=== PATIENT | female | born 1985 | race African-American/Black ===

== ENCOUNTER 2020-10-08 08:30 | Day surgery (SDC) | payer OTHER ==
[2020-10-08] MEDS ORDERED: hydrALAZINE 20 MG/ML VIAL SLOW IVP PRN (09:45)
[2020-10-08 11:06] LABS: Amnisure Test No Membranes Rupture (No Rupture)
== END 2020-10-08 12:45 | disposition home or self-care (01) ==
LOC: CSHLD/OP 08:30
PROVIDERS: ATTEND Obstetrics & Gynecology
DX: O99.891 Other specified diseases and conditions complicating pregnancy (principal); N89.8 Other specified noninflammatory disorders of vagina; O10.913 Unspecified pre-existing hypertension complicating pregnancy, third trimester; O30.003 Twin pregnancy, unspecified number of placenta and unspecified number of amniotic sacs, third trimester; O32.1XX1 Maternal care for breech presentation, fetus 1; O32.2XX2 Maternal care for transverse and oblique lie, fetus 2; Z3A.31 31 weeks gestation of pregnancy; W01.0XXA Fall on same level from slipping, tripping and stumbling without subsequent striking against object, initial encounter; Y92.002 Bathroom of unspecified non-institutional (private) residence as the place of occurrence of the external cause
CPT/HCPCS: 76819; 84112; 87480; 87510; 87660; 99283